=== PATIENT | female | born 1990 | race Two or more races ===

== ENCOUNTER 2023-07-26 05:38 | Emergency (ER) | payer SELFPAY ==
[2023-07-26] MEDS ORDERED: LIDOCAINE 1%-EPI 1:100000 10 ML MDV SUBQ STA (05:44)
[2023-07-26 06:00] VITALS: BP 119/70; O2SAT 98
[2023-07-26] MEDS ORDERED: SULFAMETH/TRIMETH DS 800/160 MG TABLET PO STA (06:14)
[2023-07-26] MEDS ORDERED: AMOX/CLAV 875 MG/125 MG TABLET PO STA (06:17)
[2023-07-26] MEDS ORDERED: oxyCODONE/ACET 5/325 Prepack 4 PO STA (06:18)
--- NOTE | 2023-07-26 06:21 | ED Physician Documentation ---
History of Present Illness - Stated complaint Stated Complaint: FEMALE - Chief complaint Chief Complaint: General - History obtained from History obtained from: Patient - Additonal information Additional information: 33yF with remote history of R bartholin abscess presents with one day of R labia majora pain and swelling similar to prior abscess. also with subjective fever/chills X 1 day. denies urinary sx PD PAST MEDICAL HISTORY - Past Medical History Past Medical History: No - Past Surgical History Past Surgical History: Yes - Present Medications Home Medications: Ambulatory Orders Medication Instructions Recorded Confirmed Amox/Clav 875/125 [Augmentin 1 tablet PO Q12H 7 Days #14 tablet 07/26/23 875/125 Tab] SULFAM/TRIM 800/160 Prepack 2 1 each PO BID #14 tablet 07/26/23 [BACTRIM DS 800/160 Prepack 2] - Allergies Allergies/Adverse Reactions: Allergies Allergy/AdvReac Type Severity Reaction Status Date / Time No Known Drug Allergies Allergy Verified 07/26/23 05:55 - Social History Does the pt smoke?: No Smoking Status: Never smoker PD ED PE NORMAL - Vitals Vital signs reviewed: Yes - General General: Alert and oriented X 3, Well developed/nourished, Other (uncomfortable appearing) - HEENT HEENT: Atraumatic, PERRL, EOMI - Female Female : Insurance Specialist present (THERESA Dale), Other (R labia majora with swelling, fluctuance and mild erythema) - Derm Derm: Normal color, Warm and dry Results - Vitals Vitals: Vital Signs - 24 hr 07/26/23 05:46 Temperature 37.5 C Heart Rate 122 H Respiratory 22 Rate Blood Pressure 119/70 O2 Saturation 98 Oxygen O2 Source Room air Procedures - Abscess I&D (location) right Preparation: Alcohol, Lidocaine 1% Incision: Incised with scalpel, Purulent drainage Other: Pt tolerated well, Antibiotic prescribed, Other (word catheter placed and pad provided) PD Medical Decision Making - ED course ED course: 33yF presents with recurrent bartholin abscess, drained and word catheter placed. she has f/u appointment in 6 days with her global program director. wound culture sent. placed on antibiotics given history of chills/fever and recurrent abscess. afebrile here in ED. return precautions given. Departure - Departure Disposition: 01 Home, Self Care Clinical Impression: Bartholin's gland abscess Condition: Stable Instructions: ED Bartholins Cyst IandD Prescriptions: Amox/Clav 875/125 [Augmentin 875/125 Tab] 1 tablet PO Q12H 7 Days #14 tablet SULFAM/TRIM 800/160 Prepack 2 [BACTRIM DS 800/160 Prepack 2] 1 each PO BID #14 tablet Comments: You were seen in the emergency department for Bartholin cyst abscess. Antibiotics were sent electronically to [facility]. You will need a nighttime dose so make sure you set up and lay out inspector the prescription before the pharmacy closes today. Please follow-up with your global program director at your appointment and return to the emergency department if you have any new or worsening symptoms or other concerns. Forms: PCP List
--- NOTE | 2023-07-28 14:44 | ED Physician Documentation ---
ED Addendum - Addendum Addendum: 07/28/23 14:44 Chart accessed for culture review. No change in antibiotics needed
== END 2023-07-26 06:42 | disposition home or self-care (01) ==
LOC: ED 05:38
DX: N75.1 Abscess of Bartholin's gland (principal)
CPT/HCPCS: 56420; 87070; 87077; 87181; 87205; 99283; A9270

== ENCOUNTER 2023-12-27 08:00 | Outpatient (CLI) | payer SELFPAY | END 2023-12-27 23:59 | disposition home or self-care (01) | LOC: LAB 08:00 | PROVIDERS: ATTEND Registered Nurse | DX: N30.00 Acute cystitis without hematuria (principal) | CPT/HCPCS: 87077; 87086; 87181 ==